=== PATIENT | female | born 1955 | race Caucasian/White ===

== ENCOUNTER → 2021-03-18 08:56 | Outpatient (CLI) | payer MEDICARE, SELFPAY ==
--- NOTE | 2021-03-18 | DI.RAD.S_ITS ---
PROCEDURE: FL BARIUM SWALLOW W AIR COMPARISON: None. INDICATIONS: DYSPHAGIA,OSTEOPOROSIS SCREENING FINDINGS: No mucosal abnormalities. No stricture identified. There is mild esophageal dysmotility. Normal transit of a calibrated barium tablet was observed. IMPRESSION: Mild esophageal dysmotility Dictated by: Aron Webster M.D. on 03/18/2021 at 13:07 Approved by: Aron Webster M.D. on 03/18/2021 at 13:10
== END ==
PROVIDERS: PCP Internal Medicine; Referring Provider Internal Medicine; Visit Provider Internal Medicine
DX: Z13.820 Encounter for screening for osteoporosis (principal); R13.10 Dysphagia, unspecified; K22.4 Dyskinesia of esophagus; M85.851 Other specified disorders of bone density and structure, right thigh; Z78.0 Asymptomatic menopausal state
CPT/HCPCS: 74221; 77080

== ENCOUNTER → 2022-11-25 14:20 | Outpatient (CLI) | payer OTHER, SELFPAY ==
--- NOTE | 2022-11-25 | DI.MRI.S_ITS ---
PROCEDURE: MR ANKLE LT WO CON INDICATIONS: Posterior tibial tendinitis, left leg TECHNIQUE: Noncontrast sagittal T1 spin echo and T2 fast spin echo with fat saturation, axial proton density fast spin echo and T2 fast spin echo with fat saturation, coronal T1 spin echo and T2 fast spin echo with fat saturation through the ankle/hindfoot. COMPARISON: None. FINDINGS: Image quality: Excellent. Bones and joints: Mild midfoot and hindfoot joint osteoarthritis is seen. No bone marrow contusions or fractures. No hindfoot coalitions. No osteochondral injuries of the talar dome. No pathologic joint effusions. Medial structures: The posterior tibialis tendon is markedly thickened with intrasubstance T2 hyperintense signal and small amount of fluid distending tendon sheath at the level of mid to distal talus and talonavicular joint. The flexor digitorum longus, and flexor hallucis longus tendons are intact. The posterior tibial neurovascular bundle appears normal within the tarsal tunnel, without extrinsic mass effect. The deltoid ligament and spring ligament are mildly thickened. Lateral structures: The anterior talofibular, calcaneofibular, and posterior talofibular ligaments appear thickened with intrasubstance T2 hyperintense signal. More superiorly, the anterior and posterior tibiofibular ligaments appear intact, as is the intermalleolar ligament. The tibiofibular syndesmosis is normal in width at 2 mm or less. The peroneus longus and brevis tendons demonstrate normal location and morphology. Adjacent bony peroneal tubercle and retrotrochlear prominence are normal in size. The sinus tarsi demonstrates normal fatty signal, without edema, fibrosis, or cyst formation. Visualized sinus tarsi components (cervical ligament, interosseous talocalcaneal ligament, roots of the inferior extensor retinaculum) appear normal. The calcaneonavicular and calcaneocuboid components of the bifurcate ligament appear intact. The dorsal calcaneocuboid ligament appears intact. Anterior structures: The tibialis anterior, extensor hallucis longus, and extensor digitorum longus tendons appear intact. The dorsal talonavicular ligament appears intact. Posterior and plantar structures: Achilles tendon is mildly thickened near its posterior calcaneal insertion. Medial and lateral bands of the plantar fascia are of normal thickness. No abductor digiti quinti muscle atrophy to suggest Buckner neuropathy. IMPRESSION: 1. Mild midfoot and hindfoot joint osteoarthritis. No marrow edema. No osteochondral injuries of talar dome. No fracture or dislocation. 2. Moderate grade tenosynovitis and low-grade intrasubstance partial-thickness tear involving posterior tibialis tendon at the level of mid to distal talus and talonavicular joint. 3. Distal Achilles tendinosis near its posterior calcaneal insertion. No Achilles tendon rupture. 4. Low-grade medial ankle ligament sprain. Low-grade sprain/intrasubstance partial-thickness tear involving anterior talofibular ligaments, posterior talofibular ligament and calcaneofibular ligament. Dictated by: Nile Cruz M.D. on 11/27/2022 at 12:06 Approved by: Nile Cruz M.D. on 11/27/2022 at 12:09
== END ==
PROVIDERS: PCP Internal Medicine; Referring Provider Orthopaedic Surgery Foot and Ankle Surgery; Visit Provider Orthopaedic Surgery Foot and Ankle Surgery
DX: M76.822 Posterior tibial tendinitis, left leg (principal); M19.072 Primary osteoarthritis, left ankle and foot; M65.862 Other synovitis and tenosynovitis, left lower leg; S93.492A Sprain of other ligament of left ankle, initial encounter; S93.412A Sprain of calcaneofibular ligament of left ankle, initial encounter
CPT/HCPCS: 73721

== ENCOUNTER → 2024-06-03 13:29 | Outpatient (CLI) | payer MEDICARE, SELFPAY ==
--- NOTE | 2024-06-03 13:32 | DI.US.S_ITS ---
PROCEDURE: US ABDOMEN LIMITED INDICATIONS: RIGHT LOWER QUADRANT PAIN ?APPENDICITIS TECHNIQUE: Real-time focused scanning was performed of the abdomen with attention to the appendix, with image documentation. COMPARISON: None. FINDINGS: Appendix visualization: Not visualized. Appendix measurements: Unable to assess Associated findings: Echogenic fat: Absent Appendiceal compressibility: Unable to assess Appendicoliths: Unable to assess Nearby free fluid: Absent Lymphadenopathy: Absent Tenderness on exam: Absent IMPRESSION: Appendix is not visualized. No secondary findings of acute appendicitis. If clinically suspect acute appendicitis, recommend CT abdomen and pelvis with contrast. Dictated by: Ambrose Mcdermott M.D. on 06/03/2024 at 21:06 Approved by: Ambrose Mcdermott M.D. on 06/03/2024 at 21:07
--- NOTE | 2024-06-03 13:32 | DI.US.S_ITS ---
PROCEDURE: US PELVIC COMPLETE INDICATIONS: RIGHT LOWER QUADRANT PAIN TECHNIQUE: Real-time scanning was performed of the pelvic organs, with image documentation. Additional endovaginal scanning was necessary due to incomplete visualization of the adnexal and endometrial structures by transabdominal scanning. COMPARISON: None. FINDINGS: Uterus: Uterus is anteverted and normal in size at 7.0 x 5.3 x 3.4 cm. The myometrium is heterogenous. The endometrium measures 8.7 mm combined thickness. Several small myometrial cysts measure up to 3 mm Several enlarged periuterine veins. Largest with 4.6 mm diameter. Ovaries: The right ovary measures 2.8 x 1.4 x 0.9 cm, with a calculated ovarian volume of 1.9 cc.>> cc. The ovaries have a normal sonographic appearance. Less than 12 follicles can be seen in each ovary. No adnexal masses are seen. Nonvisualized left ovary Other: No pathologic free abdominal or pelvic fluid. IMPRESSION: Thickened endometrium in postmenopausal female. Consider endometrial biopsy. Approved by: Gus Wren M.D. on 06/03/2024 at 18:47
== END ==
PROVIDERS: PCP Physician Assistant; Referring Provider Physician Assistant; Visit Provider Physician Assistant
DX: R10.31 Right lower quadrant pain (principal); R93.89 Abnormal findings on diagnostic imaging of other specified body structures; Z78.0 Asymptomatic menopausal state
CPT/HCPCS: 76705; 76830; 76856

== ENCOUNTER → 2024-06-09 08:18 | Outpatient (CLI) | payer MEDICARE, SELFPAY ==
--- NOTE | 2024-06-09 08:19 | DI.CT.S_ITS ---
PROCEDURE: CT ABDOMEN PELVIS W CON INDICATIONS: RLQ ABD PAIN TECHNIQUE: After the administration of intravenous contrast, axial sections acquired from the lung bases to the pubic symphysis. Coronal and sagittal reformats were performed. For radiation dose reduction, the following was used: automated exposure control, adjustment of mA and/or kV according to patient size. COMPARISON: None. FINDINGS: Image quality: Diagnostic. Lower Chest: Mild hiatal hernia. ABDOMEN: Liver: No solid mass. Mild diffuse hepatic steatosis. Gallbladder: No radiopaque gallstones or wall thickening. Biliary ducts: No biliary dilation. Pancreas: No ductal dilation. Spleen: Size is within normal limits. Adrenal Glands: No adrenal nodules. Kidneys and Ureters: No hydronephrosis. No solid mass. No complex renal cystic lesion which requires follow up. Stomach and Bowel: Normal colonic caliber, without significant wall thickening. Peritoneum: No abnormal intraperitoneal fluid. No free air. Ventral Wall: No significant ventral hernia. Abdominal Nodes: No retroperitoneal or mesenteric adenopathy by size criteria. Vessels: Aorta and inferior vena cava are normal in size. 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 PELVIS: Pelvic Organs: There is right lateral pelvic floor relaxation with protrusion of the lateral base of the bladder through the area of pelvic floor weakening. This is seen on coronal image 62 of series 3 and axial image 126 of series 2. Uterus is in normal location. There are dilated vessels within the uterine wall. Bladder: No bladder wall thickening. The right lateral base of the bladder herniates through a lateral aspect of pelvic floor weakness. There is no cystocele. Pelvic Nodes: No enlarged lymph nodes. Miscellaneous: No inguinal hernias are seen. Bones: No aggressive osseous abnormality. IMPRESSION: 1. There is right lateral aspect pelvic floor relaxation with herniation of the right base of bladder below the expected location of the pelvic floor. This can conceivably result in intermittent right lower quadrant pain. 2. 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 This physiology can be associated with a clinical syndrome of chronic pelvic venous congestion. However, it is rare that this issue would be symptomatic in the patient's age group. Comment: Consider referral to a pelvic floor relaxation specialist. Dictated by: Ambrose Mcdermott M.D. on 06/09/2024 at 13:20 Approved by: Ambrose Mcdermott M.D. on 06/09/2024 at 13:39
[2024-06-09 08:40] LABS: Estimated Glomerular Filt Rate > 60 mL/min (>60)
== END ==
PROVIDERS: Radiology Diagnostic Radiology; PCP Physician Assistant; Referring Provider Physician Assistant; Visit Provider Physician Assistant
DX: N81.89 Other female genital prolapse (principal); N81.10 Cystocele, unspecified; K76.0 Fatty (change of) liver, not elsewhere classified; I86.2 Pelvic varices; R10.31 Right lower quadrant pain
CPT/HCPCS: 36415; 74177; 82565; Q9967

== ENCOUNTER 2024-08-05 10:45 | Outpatient (RCR) | payer MEDICARE, SELFPAY ==
--- NOTE | 2024-07-03 17:07 | PT.OIE ---
Current Diagnoses Other female genital prolapse (07/02/24) Right lower quadrant pain (07/02/24) Visit Care Team Role Provider Type Ludy Botello PA-C Attending Provider Advanced Credit Adjuster Family Provider Primary Care Provider Referring Provider Specialty: Medical Address: [address] [place] [address], [id number] Email: Physical Therapy Initial Evaluation PT-OP-A Visit Information Start: 07/01/24 17:02 Freq: Status: Active Protocol: Document 07/02/24 09:45 [facility] (Rec: 07/02/24 10:03 [facility] [id number]) Out-Patient Physical Therapy Visit Information Visit Information Visit Type Initial Evaluation Visit Start Time 09:45 Visit Stop Time 10:30 Visit Number 1 Evaluation Information Evaluation Date 07/02/24 PT-OP-B Current Condition Start: 07/01/24 17:02 Freq: Status: Active Protocol: Document 07/02/24 09:45 [facility] (Rec: 07/02/24 10:03 [facility] [id number]) Current Condition History of Current Condition Onset Date March 2024 Current Complaints right sided lower abdominal and pelvic pain, urinary urgency History of Current Condition pt notes she has always had frequent urination. She feels like now it is running her life, Thanksgiving time she noted she was going all the time. Then the pain started. Its in the right lower abdomen and then wraps around her back. Then she started to experience intermittent sharp pain with bending or squatting. She was put on antibiotic and when the culture cam back she was taken off the first one and put on the second antibiotic. By May she was voiding every 15 minutes. 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 She started rowing this past January Fluid intake pt drinks mostly water, i cup of coffee in am and that is really it. She gave any alcohol as she felt something was wrong. past medical history of twins with c section delivery with one baby transverse then one additional baby that was ce section. PT-OP-F Manual Assessment Start: 07/01/24 17:02 Freq: Status: Active Protocol: Document 07/02/24 09:45 [facility] (Rec: 07/03/24 16:57 [facility] [id number]) Manual Assessments Soft Tissue Assessment Soft Tissue Mobility Assessment scar tissue tightness over the scar on the suprapubic fascia tenderness to palpation over the right lower abdominal wall PT-OP-I Pelvic Floor Start: 07/01/24 17:02 Freq: Status: Active Protocol: Document 07/02/24 13:23 [facility] (Rec: 07/02/24 13:26 [facility] [id number]) Pelvic Floor Assessment Urine Pelvic Floor Surgery No Other Urinary Symptoms pelvic pain symptoms Leakage Size Small Leakage Cause Cough Other Leakage Causes leakage only with strong cough or sneeze but not pts chief complaint of symptoms Pelvic Clock Pelvic Clock 12-3 Atrophy Pelvic Clock 3-6 Tightness Pelvic Clock 6-9 Atrophy,Tightness Pelvic Clock 9-12 Atrophy Pelvic Clock Other tenderness to palpation on the right lateral wall of the levator ani Prolapse Uterine Prolapse Grade 2 Cystocele Grade 2 Contraction Ability Voluntary Contraction Weak Voluntary Relaxation Weak Manual Muscle Testing Left 2 Manual Muscle Testing Right 2 Manual Muscle Testing Anterior 1 Manual Muscle Testing Posterior 2 Muscle Endurance (Seconds) 5 PT-OP-J Posture/Palpation/Skin Start: 07/01/24 17:02 Freq: Status: Active Protocol: Document 07/02/24 09:45 [facility] (Rec: 07/03/24 16:57 [facility] [id number]) Palpation Assessment Location right lower abdominal wall Palpation Findings Soft Tissue Tightness,Muscle Guarding Palpation Details tenderness to palpation along with tightness of lower abdominal fascia both over the bladder and right lower abdominal wall PT-OP-M Strength Start: 07/01/24 17:02 Freq: Status: Active Protocol: Document 07/02/24 09:45 [facility] (Rec: 07/03/24 16:57 [facility] [id number]) Trunk Strength Trunk Manual Muscle Testing Testing Position Supine Flexion 3 Fair Core Stabilization With transverse abdominal contraction there is tenderness that is reproduced on the lower right abdominal wall. Codie needs cues to pull the TA musculature towards her verses pushing out away from the abdominal wall. PT-OP-Q Treatments Start: 07/01/24 17:02 Freq: Status: Active Protocol: Document 07/02/24 09:45 [facility] (Rec: 07/02/24 10:49 [facility] [id number]) Therapeutic Exercises Supine Exercises pelvic floor with adductor assist Supine Exercise Name pt to do supine only Reps/Minutes 10 reps 5 sec hold with 10 sec relax Comments pt to work up to 10 sec hold after a few days if able PT-OP-T Assessment and Plan Start: 07/01/24 17:02 Freq: Status: Active Protocol: Document 07/02/24 09:45 [facility] (Rec: 07/02/24 13:27 [facility] [id number]) Physical Therapy Assessment Rehab Potential Rehabilitation Potential Excellent Evaluation Complexity Number of Personal Factors/Comorbidities 1-2 Number of Body Systems Impaired 3 Clinical Presentation at Evaluation Evolving Impairments Impairments Activity Tolerance,Pain,Soft Tissue Mobility,Strength,Tone Other Impairments c/o right sided lower abdominal pain Goals 3 Impairment urinary urgency and frequency with pt voiding 15-19 times per day and 2 times per night Short Term Goal (STG) Kimberly is educated on the urge deference technique and bladder retraining to help reduce complaints of urinary frequency and urgency and is educated on toileting techniques to help with fully emptying her bladder. General Science Teacher Goal (LTG) Kimberly is able to increase her void time to at least every hour and will be working towards every 2 hour intervals LTG Duration 8 weeks+ 2 Impairment right lower abdominal wall pain made worse with bending activities General Science Teacher Goal (LTG) Kimberly reports a overall reduction of abdominal wall pain with improved pelvic floor support for her pelvic organs LTG Duration 8 weeks 1 Impairment Decreased strength and endurance of the pelvic floor Short Term Goal (STG) Kimberly is able to increase endurance of the pelvic floor to 10 sec hold time in supine STG Duration 4 weeks General Science Teacher Goal (LTG) Kimberly is able to improve her MMT by at least 1 muscle grade and is able to facilitate a pelvic floor contraction in sitting holding 5 sec or better LTG Duration 8 weeks Assessment Summary Assessment Kimberly is a 68 year old female referred to PT with chief complaints of urinary urgency an frequency that began in March 2024. As her symptoms progressed she started experiencing a right sided lower abdominal pain. This pain is worse with bending and squatting activities. She was tested and treated for a UTI however pain symptoms did not resolve. She does note that she has started a rowing program on the water with the [employer] in January 2024. She has since stopped this activity. With exam today there is scar tissue present from her C section scar horizontally over the suprapubic fascia. There is tenderness to palpation over the lower right abdominal wall. When directed to perform a transverse abdominal muscle contraction this increases irritation on the right lower quadrant. With pelvic floor assessment Kimberly presents with weakness of the levator ani in all perez. She tests 1/5 MMT for the anterior perez and 2/5 MMT for the posterior and lateral perez. There is tenderness over the right lateral wall of the levator ani. Both a grade 2 uterine prolapse as well as a cystocele are present. Kimberly was educated in decompression for the pelvis to take pressure off the pelvic organs. SHe was educated in pessary options and may be a candidate for a bladder support as she would like to return to rowing when she can. Treatment will focus on pelvic floor strength and endurance program to build up her strength to support her pelvic organs. We will then progress to lower abdominal strengthening as well and move to upright positions for core stability. This will include pelvic floor bracing with rowing to decrease any downward pressure with her activity she is enjoying. Kimberly will be leaving for [place] in August for 6 months so we will treat her 2 times per week until that time. She is a good candidate for PT. Physical Therapy Plan Frequency and Duration Frequency of Treatment 2x/Week Duration of treatment (weeks) 8 Plan of Care Start Date 07/02/24 Plan of Care End Date 08/27/24 Therapeutic Interventions Therapeutic Interventions Home Exercise Program,Manual Therapy,Patient/Caregiver Education,Self-Care/Home Management,Soft Tissue Mobilization,Therapeutic Exercises Modalities Biofeedback Next Visit Focus/Plan Next Note Type Treatment Note Next Visit Plan work on pelvic decompression with a wedge, MFR for the suprapubic fascia, educated Kimberly on the urge deference technique, pelvic floor strength and endurance exercises.
--- NOTE | 2024-07-09 11:59 | PT.OTN ---
Current Diagnoses Other female genital prolapse (07/09/24) Right lower quadrant pain (07/09/24) Physical Therapy Treatment Note PT-OP-A Visit Information Start: 07/01/24 17:02 Freq: Status: Active Protocol: Document 07/09/24 10:45 [facility] (Rec: 07/09/24 11:59 [facility] [id number]) Out-Patient Physical Therapy Visit Information Visit Information Visit Type Treatment Note Visit Start Time 10:45 Visit Stop Time 11:30 Visit Number 2 PT-OP-B Current Condition Start: 07/01/24 17:02 Freq: Status: Active Protocol: Document 07/02/24 09:45 [facility] (Rec: 07/02/24 10:03 [facility] [id number]) Current Condition History of Current Condition Onset Date March 2024 Current Complaints right sided lower abdominal and pelvic pain, urinary urgency History of Current Condition pt notes she has always had frequent urination. She feels like now it is running her life, Thanksgiving time she noted she was going all the time. Then the pain started. Its in the right lower abdomen and then wraps around her back. Then she started to experience intermittent sharp pain with bending or squatting. She was put on antibiotic and when the culture cam back she was taken off the first one and put on the second antibiotic. By May she was voiding every 15 minutes. 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 She started rowing this past sepemte Fluid intake pt drinks mostly water, i cup of coffee in am and that is really it. She gave any alcohol as she felt something was wrong. past medical history of twins with c section delivery with one baby trasverse then one additional baby that was ce section. PT-OP-C Subjective Start: 07/01/24 17:02 Freq: Status: Active Protocol: Document 07/09/24 10:45 [facility] (Rec: 07/09/24 11:59 [facility] [id number]) OP-PT Subjective Patient Comments Patient Comments pt notes the relaxing of the pelvic floor is harder than the squeezing pt notes the bloating is a little better She saw Dr Cantu and he took a biopsy of endometrium tissue as the pelvic ultrasound did show some thickening of the endometrium She is awaiting those results. PT-OP-F Manual Assessment Start: 07/01/24 17:02 Freq: Status: Active Protocol: Document 07/02/24 09:45 [facility] (Rec: 07/03/24 16:57 [facility] [id number]) Manual Assessments Soft Tissue Assessment Soft Tissue Mobility Assessment scar tissue tightness over the scar on the suprapubic fascia tenderness to palpation over the right lower abdominal wall PT-OP-I Pelvic Floor Start: 07/01/24 17:02 Freq: Status: Active Protocol: Document 07/02/24 13:23 [facility] (Rec: 07/02/24 13:26 [facility] [id number]) Pelvic Floor Assessment Urine Pelvic Floor Surgery No Other Urinary Symptoms pelvic pain symptoms Leakage Size Small Leakage Cause Cough Other Leakage Causes leakage only with strong cough or sneeze but not pts chief complaint of symptoms Pelvic Clock Pelvic Clock 12-3 Atrophy Pelvic Clock 3-6 Tightness Pelvic Clock 6-9 Atrophy,Tightness Pelvic Clock 9-12 Atrophy Pelvic Clock Other tenderness to palpation on the right lateral wall of the levator ani Prolapse Uterine Prolapse Grade 2 Cystocele Grade 2 Contraction Ability Voluntary Contraction Weak Voluntary Relaxation Weak Manual Muscle Testing Left 2 Manual Muscle Testing Right 2 Manual Muscle Testing Anterior 1 Manual Muscle Testing Posterior 2 Muscle Endurance (Seconds) 5 PT-OP-J Posture/Palpation/Skin Start: 07/01/24 17:02 Freq: Status: Active Protocol: Document 07/02/24 09:45 [facility] (Rec: 07/03/24 16:57 [facility] [id number]) Palpation Assessment Location right lower abdominal wall Palpation Findings Soft Tissue Tightness,Muscle Guarding Palpation Details tenderness to palpation along with tightness of lower abdominal fascia both over the bladder and right lower abdominal wall PT-OP-M Strength Start: 07/01/24 17:02 Freq: Status: Active Protocol: Document 07/02/24 09:45 [facility] (Rec: 07/03/24 16:57 [facility] [id number]) Trunk Strength Trunk Manual Muscle Testing Testing Position Supine Flexion 3 Fair Core Stabilization With transverse abdominal contraction there is tenderness that is reproduced on the lower right abdominal wall. Codie needs cues to pull the TA musculature towards her verses pushing out away from the abdominal wall. PT-OP-Q Treatments Start: 07/01/24 17:02 Freq: Status: Active Protocol: Document 07/09/24 10:45 [facility] (Rec: 07/09/24 11:59 [facility] [id number]) Therapeutic Exercises Supine Exercises pelvic floor long holds Reps/Minutes 10 reps holding 10 seconds Comments 6.8 and max 19.1 uv pelvic floor resting tone Supine Exercise Name 2.5 uv average initially Comments pt was able to fully relax her pelvic floor to baseline following exercises pelvic floor with adductor assist Supine Exercise Name with ball squeeze Reps/Minutes 10 reps holding 10 seconds and relaxing 10 seconds Comments 7.7 average and 19.1 uv max Manual Therapy Treatment Soft Tissue Mobilization MFR of the suprapubic fascia and over right side of abdominal wall Mobilization Type Myofascial Release Body Position Hooklying Comments did try placing pillows under the pelvis for some pelvic decompression, tried a wedge but this did not feel comfortable to the pt, legs were elevated over a bolster I worked on releasing botht he lower abdominal and suprapubic fascia. There is some scar tissue present over the scar Self-Care/Home Management Treatment Education Other Education Kimberly was educated on the urge deference technique and working on fully relaxing her pelvic floor with voiding She was given a bladder diary for home PT-OP-T Assessment and Plan Start: 07/01/24 17:02 Freq: Status: Active Protocol: Document 07/09/24 10:45 [facility] (Rec: 07/09/24 11:59 [facility] [id number]) Physical Therapy Assessment Goals 3 Impairment urinary urgency and frequency with pt voiding 15-19 times per day and 2 times per night Short Term Goal (STG) Kimberly is educated on the urge deference technique and bladder retraining to help reduce complaints of urinary frequency and urgency and is educated on toileting techniques to help with fully emptying her bladder. Byproducts Extractor Goal (LTG) Kimberly is able to increase her void time to at least every hour and will be working towards every 2 hour intervals LTG Duration 8 weeks+ 2 Impairment right lower abdominal wall pain made worse with bending activities Usp Goal (LTG) Kimberly reports a overall reduction of abdominal wall pain with improved pelvic floor support for her pelvic organs LTG Duration 8 weeks 1 Impairment Decreased strength and endurance of the pelvic floor Short Term Goal (STG) Kimberly is able to increase endurance of the pelvic floor to 10 sec hold time in supine STG Duration 4 weeks Byproducts Extractor Goal (LTG) Kimberly is able to improve her MMT by at least 1 muscle grade and is able to facilitate a pelvic floor contraction in sitting holding 5 sec or better LTG Duration 8 weeks Assessment Summary Assessment Today treatment focused on fascial release of the lower abdominal fascia and suprapubic fascia. I did try elevating Jessica pelvis with a wedge but this did not feel comfortable on her back so we used a folded pillow under her sacrum and she tolerated this well. With pelvic floor endurance training she was elevated at 2.5 initially and it takes her the full 10 seconds to relax her pelvic floor after a contraction but at the end of her exercises she was resting at baseline. Endurance of the pelvic floor is limited and Kimberly would benefit from continued pelvic floor endurance training as well as relaxed awareness to fully relax her pelvic floor especially with voiding Physical Therapy Plan Next Visit Focus/Plan Next Note Type Treatment Note Next Visit Plan MFR for the suprapubic fascia, review bladder diary, review urge deference technique, continue progressing pelvic floor endurance and core strength, trial of TA isolations in quadruped
--- NOTE | 2024-07-16 12:55 | PT.OTN ---
Current Diagnoses Other female genital prolapse (07/16/24) Right lower quadrant pain (07/16/24) Physical Therapy Treatment Note PT-OP-A Visit Information Start: 07/01/24 17:02 Freq: Status: Active Protocol: Document 07/16/24 10:44 [facility] (Rec: 07/16/24 11:35 [facility] [id number]) Out-Patient Physical Therapy Visit Information Visit Information Visit Type Treatment Note Visit Start Time 10:45 Visit Stop Time 11:30 Visit Number 3 PT-OP-B Current Condition Start: 07/01/24 17:02 Freq: Status: Active Protocol: Document 07/02/24 09:45 [facility] (Rec: 07/02/24 10:03 [facility] [id number]) Current Condition History of Current Condition Onset Date March 2024 Current Complaints right sided lower abdominal and pelvic pain, urinary urgency History of Current Condition pt notes she has always had frequent urination. She feels like now it is running her life, Thanksgiving time she noted she was going all the time. Then the pain started. Its in the right lower abdomen and then wraps around her back. Then she started to experience intermittent sharp pain with bending or squatting. She was put on antibiotic and when the culture cam back she was taken off the first one and put on the second antibiotic. By May she was voiding every 15 minutes. 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 She started rowing this past sepemte Fluid intake pt drinks mostly water, i cup of coffee in am and that is really it. She gave any alcohol as she felt something was wrong. past medical history of twins with c section delivery with one baby trasverse then one additional baby that was ce section. PT-OP-C Subjective Start: 07/01/24 17:02 Freq: Status: Active Protocol: Document 07/16/24 10:44 [facility] (Rec: 07/16/24 11:35 [facility] [id number]) OP-PT Subjective Patient Comments Patient Comments pt notes she is going less than she was before, one night she didn't get up to void at all she is drinking a lot of water in the am with her coffee Abdominal pain is 50 percent better than it was before, all the results of the biopsy were benign. Patient Reported Progress Improving PT-OP-F Manual Assessment Start: 07/01/24 17:02 Freq: Status: Active Protocol: Document 07/02/24 09:45 [facility] (Rec: 07/03/24 16:57 [facility] [id number]) Manual Assessments Soft Tissue Assessment Soft Tissue Mobility Assessment scar tissue tightness over the scar on the suprapubic fascia tenderness to palpation over the right lower abdominal wall PT-OP-I Pelvic Floor Start: 07/01/24 17:02 Freq: Status: Active Protocol: Document 07/02/24 13:23 [facility] (Rec: 07/02/24 13:26 [facility] [id number]) Pelvic Floor Assessment Urine Pelvic Floor Surgery No Other Urinary Symptoms pelvic pain symptoms Leakage Size Small Leakage Cause Cough Other Leakage Causes leakage only with strong cough or sneeze but not pts chief complaint of symptoms Pelvic Clock Pelvic Clock 12-3 Atrophy Pelvic Clock 3-6 Tightness Pelvic Clock 6-9 Atrophy,Tightness Pelvic Clock 9-12 Atrophy Pelvic Clock Other tenderness to palpation on the right lateral wall of the levator ani Prolapse Uterine Prolapse Grade 2 Cystocele Grade 2 Contraction Ability Voluntary Contraction Weak Voluntary Relaxation Weak Manual Muscle Testing Left 2 Manual Muscle Testing Right 2 Manual Muscle Testing Anterior 1 Manual Muscle Testing Posterior 2 Muscle Endurance (Seconds) 5 PT-OP-J Posture/Palpation/Skin Start: 07/01/24 17:02 Freq: Status: Active Protocol: Document 07/02/24 09:45 [facility] (Rec: 07/03/24 16:57 [facility] [id number]) Palpation Assessment Location right lower abdominal wall Palpation Findings Soft Tissue Tightness,Muscle Guarding Palpation Details tenderness to palpation along with tightness of lower abdominal fascia both over the bladder and right lower abdominal wall PT-OP-M Strength Start: 07/01/24 17:02 Freq: Status: Active Protocol: Document 07/02/24 09:45 [facility] (Rec: 07/03/24 16:57 [facility] [id number]) Trunk Strength Trunk Manual Muscle Testing Testing Position Supine Flexion 3 Fair Core Stabilization With transverse abdominal contraction there is tenderness that is reproduced on the lower right abdominal wall. oCdie needs cues to pull the TA musculature towards her verses pushing out away from the abdominal wall. PT-OP-Q Treatments Start: 07/01/24 17:02 Freq: Status: Active Protocol: Document 07/16/24 10:44 [facility] (Rec: 07/16/24 11:35 [facility] [id number]) Therapeutic Exercises Supine Exercises pelvic floor long holds Reps/Minutes 10 reps holding 10 seconds Comments 6.5 and 17.1 pelvic floor resting tone Supine Exercise Name 1.7 average resting tone Comments pt was able to fully relax her pelvic floor to baseline following exercises pelvic floor with adductor assist Supine Exercise Name with ball squeeze Reps/Minutes 10 reps holding 10 seconds and relaxing 10 seconds Comments 7.7 average and 19.1 uv max Other Exercises quadruped TA Reps/Minutes x 10 reps holding 5 seconds Comments We tried quadruped and then moved to sidelying as quadruped bothered wrists Manual Therapy Treatment Soft Tissue Mobilization MFR of the suprapubic fascia and over right side of abdominal wall Mobilization Type Myofascial Release Body Position Hooklying Comments I worked on releasing both the lower abdominal and suprapubic fascia. There is some scar tissue present over the scar PT-OP-T Assessment and Plan Start: 07/01/24 17:02 Freq: Status: Active Protocol: Document 07/16/24 10:44 [facility] (Rec: 07/16/24 11:35 [facility] [id number]) Physical Therapy Assessment Goals 3 Impairment urinary urgency and frequency with pt voiding 15-19 times per day and 2 times per night Short Term Goal (STG) Kimberly is educated on the urge deference technique and bladder retraining to help reduce complaints of urinary frequency and urgency and is educated on toileting techniques to help with fully emptying her bladder. Intermediate Goal (LTG) Kimberly is able to increase her void time to at least every hour and will be working towards every 2 hour intervals LTG Duration 8 weeks+ 2 Impairment right lower abdominal wall pain made worse with bending activities Dry Cleaner Goal (LTG) Kimberly reports a overall reduction of abdominal wall pain with improved pelvic floor support for her pelvic organs LTG Duration 8 weeks 1 Impairment Decreased strength and endurance of the pelvic floor Short Term Goal (STG) Kimberly is able to increase endurance of the pelvic floor to 10 sec hold time in supine STG Duration 4 weeks Dry Cleaner Goal (LTG) Kimberly is able to improve her MMT by at least 1 muscle grade and is able to facilitate a pelvic floor contraction in sitting holding 5 sec or better LTG Duration 8 weeks Assessment Summary Assessment Kimberly is doing well with treatment and reports that her abdominal pain is reduced by 50% now. I did start her on TA facilitation and this is difficult for her as she wants to engage her upper abdominal wall. Sidelying worked better than quadruped. She still needs continued strengthening for her pelvic floor as endurance holds are difficult for her. Physical Therapy Plan Frequency and Duration Frequency of Treatment 2x/Week Duration of treatment (weeks) 8 Plan of Care Start Date 07/02/24 Plan of Care End Date 08/27/24 Therapeutic Interventions Therapeutic Interventions Home Exercise Program,Manual Therapy,Patient/Caregiver Education,Self-Care/Home Management,Soft Tissue Mobilization,Therapeutic Exercises Modalities Biofeedback Next Visit Focus/Plan Next Note Type Treatment Note Next Visit Plan MFR for the suprapubic fascia, review bladder diary, review urge deference technique, continue progressing pelvic floor endurance and core strength, work on sit-stand with pelvic floor and TA engagement
--- NOTE | 2024-07-23 12:35 | PT.OTN ---
Current Diagnoses Other female genital prolapse (07/23/24) Right lower quadrant pain (07/23/24) Physical Therapy Treatment Note PT-OP-A Visit Information Start: 07/01/24 17:02 Freq: Status: Active Protocol: Document 07/23/24 11:27 [facility] (Rec: 07/23/24 11:36 [facility] [id number]) Out-Patient Physical Therapy Visit Information Visit Information Visit Start Time 11:30 Visit Stop Time 12:15 Visit Number 4 PT-OP-B Current Condition Start: 07/01/24 17:02 Freq: Status: Active Protocol: Document 07/02/24 09:45 [facility] (Rec: 07/02/24 10:03 [facility] [id number]) Current Condition History of Current Condition Onset Date March 2024 Current Complaints right sided lower abdominal and pelvic pain, urinary urgency History of Current Condition pt notes she has always had frequent urination. She feels like now it is running her life, Thanksgiving time she noted she was going all the time. Then the pain started. Its in the right lower abdomen and then wraps around her back. Then she started to experience intermittent sharp pain with bending or squatting. She was put on antibiotic and when the culture cam back she was taken off the first one and put on the second antibiotic. By May she was voiding every 15 minutes. 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 She started rowing this past sepemte Fluid intake pt drinks mostly water, i cup of coffee in am and that is really it. She gave any alcohol as she felt something was wrong. past medical history of twins with c section delivery with one baby trasverse then one additional baby that was ce section. PT-OP-C Subjective Start: 07/01/24 17:02 Freq: Status: Active Protocol: Document 07/23/24 11:27 [facility] (Rec: 07/23/24 11:36 [facility] [id number]) OP-PT Subjective Patient Comments Patient Comments she only felt her pain 1-2 times this week, its still a little tender but not bad The urinination is better, a couple a nights she slept through the night SHe has been out in the yard working too and it hasn't bothered her PT-OP-F Manual Assessment Start: 07/01/24 17:02 Freq: Status: Active Protocol: Document 07/02/24 09:45 [facility] (Rec: 07/03/24 16:57 [facility] [id number]) Manual Assessments Soft Tissue Assessment Soft Tissue Mobility Assessment scar tissue tightness over the scar on the suprapubic fascia tenderness to palpation over the right lower abdominal wall PT-OP-I Pelvic Floor Start: 07/01/24 17:02 Freq: Status: Active Protocol: Document 07/02/24 13:23 [facility] (Rec: 07/02/24 13:26 [facility] [id number]) Pelvic Floor Assessment Urine Pelvic Floor Surgery No Other Urinary Symptoms pelvic pain symptoms Leakage Size Small Leakage Cause Cough Other Leakage Causes leakage only with strong cough or sneeze but not pts chief complaint of symptoms Pelvic Clock Pelvic Clock 12-3 Atrophy Pelvic Clock 3-6 Tightness Pelvic Clock 6-9 Atrophy,Tightness Pelvic Clock 9-12 Atrophy Pelvic Clock Other tenderness to palpation on the right lateral wall of the levator ani Prolapse Uterine Prolapse Grade 2 Cystocele Grade 2 Contraction Ability Voluntary Contraction Weak Voluntary Relaxation Weak Manual Muscle Testing Left 2 Manual Muscle Testing Right 2 Manual Muscle Testing Anterior 1 Manual Muscle Testing Posterior 2 Muscle Endurance (Seconds) 5 PT-OP-J Posture/Palpation/Skin Start: 07/01/24 17:02 Freq: Status: Active Protocol: Document 07/02/24 09:45 [facility] (Rec: 07/03/24 16:57 [facility] [id number]) Palpation Assessment Location right lower abdominal wall Palpation Findings Soft Tissue Tightness,Muscle Guarding Palpation Details tenderness to palpation along with tightness of lower abdominal fascia both over the bladder and right lower abdominal wall PT-OP-M Strength Start: 07/01/24 17:02 Freq: Status: Active Protocol: Document 07/02/24 09:45 [facility] (Rec: 07/03/24 16:57 [facility] [id number]) Trunk Strength Trunk Manual Muscle Testing Testing Position Supine Flexion 3 Fair Core Stabilization With transverse abdominal contraction there is tenderness that is reproduced on the lower right abdominal wall. Codie needs cues to pull the TA musculature towards her verses pushing out away from the abdominal wall. PT-OP-Q Treatments Start: 07/01/24 17:02 Freq: Status: Active Protocol: Document 07/23/24 11:27 [facility] (Rec: 07/23/24 12:33 [facility] [id number]) Therapeutic Exercises Supine Exercises pelvic floor long holds Reps/Minutes 10 reps holding 10 seconds Comments 4.9 andmax of 19.6 pelvic floor resting tone Supine Exercise Name 1.4 average pelvic floor with adductor assist Supine Exercise Name HEP Sidelying Exercises clam shells Sidelying Exercise Name pt was able to drop to baseline after doing clam shells B Side bilateral Reps/Minutes x 10 reps Comments 5 sec hold 5 sec relax Other Exercises quadruped TA Other Exercise Name worked in sidelying as pt tolerate this better Reps/Minutes x 10 reps holding 5 seconds Comments improved today with cues to exhale with contraction Manual Therapy Treatment Soft Tissue Mobilization MFR of the suprapubic fascia and over right side of abdominal wall Mobilization Type Myofascial Release Body Position Hooklying Comments hx of right sided lower abdominal wall pain but this is improving and pt is no longer as tender I worked on releasing both the lower abdominal and suprapubic fascia. There is some scar tissue present over the scar PT-OP-T Assessment and Plan Start: 07/01/24 17:02 Freq: Status: Active Protocol: Document 07/23/24 11:27 [facility] (Rec: 07/23/24 12:33 [facility] [id number]) Physical Therapy Assessment Goals 3 Impairment urinary urgency and frequency with pt voiding 15-19 times per day and 2 times per night Short Term Goal (STG) Kimberly is educated on the urge deference technique and bladder retraining to help reduce complaints of urinary frequency and urgency and is educated on toileting techniques to help with fully emptying her bladder. Calibration Specialist Goal (LTG) Kimberly is able to increase her void time to at least every hour and will be working towards every 2 hour intervals LTG Duration 8 weeks+ 2 Impairment right lower abdominal wall pain made worse with bending activities Correction Goal (LTG) Kimberly reports a overall reduction of abdominal wall pain with improved pelvic floor support for her pelvic organs LTG Duration 8 weeks 1 Impairment Decreased strength and endurance of the pelvic floor Short Term Goal (STG) Kimberly is able to increase endurance of the pelvic floor to 10 sec hold time in supine STG Duration 4 weeks Correction Goal (LTG) Kimberly is able to improve her MMT by at least 1 muscle grade and is able to facilitate a pelvic floor contraction in sitting holding 5 sec or better LTG Duration 8 weeks Assessment Summary Assessment right sided lower abdominal wall pain continues to decrease and urgency is also decreasing. Kimberly had a night where she was able to sleep the full night. I did talk to her about drinking water first vs the coffee as her urgency is still present in the am after she drinks her coffee. She will try one glass of water first thing. Endurance is still limited for Kimberly with her pelvic floor . She does better with adductor assist and today I added in clam shells with 5 sec hold and 5 sec rest this also improved her average contraction of pelvic floor. Pt has 2 weeks prior to leaving for [place] x 6 months Physical Therapy Plan Frequency and Duration Frequency of Treatment 2x/Week Duration of treatment (weeks) 8 Plan of Care Start Date 07/02/24 Plan of Care End Date 08/27/24 Therapeutic Interventions Therapeutic Interventions Home Exercise Program,Manual Therapy,Patient/Caregiver Education,Self-Care/Home Management,Soft Tissue Mobilization,Therapeutic Exercises Modalities Biofeedback Next Visit Focus/Plan Next Note Type Treatment Note Next Visit Plan MFR for the suprapubic fascia, review bladder diary, review urge deference technique, continue progressing pelvic floor endurance and core strength, review clam shells, work on sit-stand with pelvic floor and TA engagement
--- NOTE | 2024-07-25 12:20 | PT.OTN ---
Current Diagnoses Other female genital prolapse (07/25/24) Right lower quadrant pain (07/25/24) Physical Therapy Treatment Note PT-OP-A Visit Information Start: 07/01/24 17:02 Freq: Status: Active Protocol: Document 07/25/24 11:35 [facility] (Rec: 07/25/24 12:23 [facility] [id number]) Out-Patient Physical Therapy Visit Information Visit Information Visit Start Time 11:35 Visit Stop Time 12:20 Visit Number 5 Number of CHURCH MUSICIAN Visits 1 Evaluation Information Evaluation Date 07/02/24 PT-OP-B Current Condition Start: 07/01/24 17:02 Freq: Status: Active Protocol: Document 07/02/24 09:45 [facility] (Rec: 07/02/24 10:03 [facility] [id number]) Current Condition History of Current Condition Onset Date March 2024 Current Complaints right sided lower abdominal and pelvic pain, urinary urgency History of Current Condition pt notes she has always had frequent urination. She feels like now it is running her life, Thanksgiving time she noted she was going all the time. Then the pain started. Its in the right lower abdomen and then wraps around her back. Then she started to experience intermittent sharp pain with bending or squatting. She was put on antibiotic and when the culture cam back she was taken off the first one and put on the second antibiotic. By May she was voiding every 15 minutes. 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 She started rowing this past sepemte Fluid intake pt drinks mostly water, i cup of coffee in am and that is really it. She gave any alcohol as she felt something was wrong. past medical history of twins with c section delivery with one baby trasverse then one additional baby that was ce section. PT-OP-C Subjective Start: 07/01/24 17:02 Freq: Status: Active Protocol: Document 07/25/24 11:35 [facility] (Rec: 07/25/24 12:23 [facility] [id number]) OP-PT Subjective Patient Comments Patient Comments Pt reports PT was right clamshell 3x/wk is enough, did get sore daily and needed recovery day. She reports no leakage. PT-OP-F Manual Assessment Start: 07/01/24 17:02 Freq: Status: Active Protocol: Document 07/02/24 09:45 [facility] (Rec: 07/03/24 16:57 [facility] [id number]) Manual Assessments Soft Tissue Assessment Soft Tissue Mobility Assessment scar tissue tightness over the scar on the suprapubic fascia tenderness to palpation over the right lower abdominal wall PT-OP-I Pelvic Floor Start: 07/01/24 17:02 Freq: Status: Active Protocol: Document 07/02/24 13:23 [facility] (Rec: 07/02/24 13:26 [facility] [id number]) Pelvic Floor Assessment Urine Pelvic Floor Surgery No Other Urinary Symptoms pelvic pain symptoms Leakage Size Small Leakage Cause Cough Other Leakage Causes leakage only with strong cough or sneeze but not pts chief complaint of symptoms Pelvic Clock Pelvic Clock 12-3 Atrophy Pelvic Clock 3-6 Tightness Pelvic Clock 6-9 Atrophy,Tightness Pelvic Clock 9-12 Atrophy Pelvic Clock Other tenderness to palpation on the right lateral wall of the levator ani Prolapse Uterine Prolapse Grade 2 Cystocele Grade 2 Contraction Ability Voluntary Contraction Weak Voluntary Relaxation Weak Manual Muscle Testing Left 2 Manual Muscle Testing Right 2 Manual Muscle Testing Anterior 1 Manual Muscle Testing Posterior 2 Muscle Endurance (Seconds) 5 PT-OP-J Posture/Palpation/Skin Start: 07/01/24 17:02 Freq: Status: Active Protocol: Document 07/02/24 09:45 [facility] (Rec: 07/03/24 16:57 [facility] [id number]) Palpation Assessment Location right lower abdominal wall Palpation Findings Soft Tissue Tightness,Muscle Guarding Palpation Details tenderness to palpation along with tightness of lower abdominal fascia both over the bladder and right lower abdominal wall PT-OP-M Strength Start: 07/01/24 17:02 Freq: Status: Active Protocol: Document 07/02/24 09:45 [facility] (Rec: 07/03/24 16:57 [facility] [id number]) Trunk Strength Trunk Manual Muscle Testing Testing Position Supine Flexion 3 Fair Core Stabilization With transverse abdominal contraction there is tenderness that is reproduced on the lower right abdominal wall. Codie needs cues to pull the TA musculature towards her verses pushing out away from the abdominal wall. PT-OP-Q Treatments Start: 07/01/24 17:02 Freq: Status: Active Protocol: Document 07/25/24 11:35 [facility] (Rec: 07/25/24 12:23 [facility] [id number]) Therapeutic Exercises Supine Exercises Pelvic floor Quick Flicks Supine Exercise Name added to HEP to assist urgency technique Reps/Minutes 2 SH rest 4 SH Comments W 7.4uv avg, max 14.9uv, R 3. 1uv pelvic floor long holds Reps/Minutes 10 reps holding 10 seconds Comments 45.3uv and max of 15.9uv pelvic floor resting tone Supine Exercise Name 1.6uv average pelvic floor with adductor assist Supine Exercise Name HEP Reps/Minutes 10 reps holding 10 seconds and relaxing 10 seconds Comments 5.1uv average and 21.uv max ( readjusted 94.9uv) Sidelying Exercises clam shells Side bilateral Reps/Minutes x 10 reps Comments 5 sec hold 5 sec relax Other Exercises quadruped TA Other Exercise Name worked in sidelying as pt tolerate this better Reps/Minutes x 10 reps holding 5 seconds Comments improved today with cues to exhale with contraction Manual Therapy Treatment Consent Patient gave verbal consent for manual Yes treatment Soft Tissue Mobilization MFR of the suprapubic fascia and over right side of abdominal wall Mobilization Type Myofascial Release Body Position Hooklying Comments improving no pain reported and pt is no longer as tender I worked on releasing both the lower abdominal and suprapubic fascia. There is some scar tissue present over the scar. lateral glide ed self application PT-OP-T Assessment and Plan Start: 07/01/24 17:02 Freq: Status: Active Protocol: Document 07/25/24 11:35 [facility] (Rec: 07/25/24 12:23 [facility] [id number]) Physical Therapy Assessment Goals 3 Impairment urinary urgency and frequency with pt voiding 15-19 times per day and 2 times per night Short Term Goal (STG) Kimberly is educated on the urge deference technique and bladder retraining to help reduce complaints of urinary frequency and urgency and is educated on toileting techniques to help with fully emptying her bladder. Detention Goal (LTG) Kimberly is able to increase her void time to at least every hour and will be working towards every 2 hour intervals LTG Duration 8 weeks+ 2 Impairment right lower abdominal wall pain made worse with bending activities Senior Technical Trainer Goal (LTG) Kimberly reports a overall reduction of abdominal wall pain with improved pelvic floor support for her pelvic organs LTG Duration 8 weeks 1 Impairment Decreased strength and endurance of the pelvic floor Short Term Goal (STG) Kimberly is able to increase endurance of the pelvic floor to 10 sec hold time in supine STG Duration 4 weeks Detention Goal (LTG) Kimberly is able to improve her MMT by at least 1 muscle grade and is able to facilitate a pelvic floor contraction in sitting holding 5 sec or better LTG Duration 8 weeks Assessment Summary Assessment Pt good response to stretching not having abdominal pain, is limiting coffee due to finds is an irritant. Improved pelvic floor contraction with neuromuscular reeducation. Progressed instruction of quick flicks today 2 SH 4 sec rest with education assist urgency technique with good feedback. She reports can feel TA draw better in SL now. Improved tolerance to MF glide and education self to abdominal scar to support mobility. Physical Therapy Plan Frequency and Duration Frequency of Treatment 2x/Week Duration of treatment (weeks) 8 Plan of Care Start Date 07/02/24 Plan of Care End Date 08/27/24 Therapeutic Interventions Therapeutic Interventions Home Exercise Program,Manual Therapy,Patient/Caregiver Education,Self-Care/Home Management,Soft Tissue Mobilization,Therapeutic Exercises Modalities Biofeedback Next Visit Focus/Plan Next Note Type Treatment Note Next Visit Plan MFR for the suprapubic fascia, recheck urge deference technique and use quick flicks added last tx, continue progressing pelvic floor endurance and core strength, review clam shells, work on sit-stand with pelvic floor and TA engagement
--- NOTE | 2024-07-29 16:00 | PT.OTN ---
Current Diagnoses Other female genital prolapse (07/29/24) Right lower quadrant pain (07/29/24) Physical Therapy Treatment Note PT-OP-A Visit Information Start: 07/01/24 17:02 Freq: Status: Active Protocol: Document 07/29/24 11:31 [facility] (Rec: 07/29/24 12:16 [facility] [id number]) Out-Patient Physical Therapy Visit Information Visit Information Visit Type Treatment Note Visit Start Time 11:31 Visit Stop Time 12:15 Visit Number 6 Number of HVAC MECHANIC Visits 0 PT-OP-B Current Condition Start: 07/01/24 17:02 Freq: Status: Active Protocol: Document 07/02/24 09:45 [facility] (Rec: 07/02/24 10:03 [facility] [id number]) Current Condition History of Current Condition Onset Date March 2024 Current Complaints right sided lower abdominal and pelvic pain, urinary urgency History of Current Condition pt notes she has always had frequent urination. She feels like now it is running her life, Thanksgiving time she noted she was going all the time. Then the pain started. Its in the right lower abdomen and then wraps around her back. Then she started to experience intermittent sharp pain with bending or squatting. She was put on antibiotic and when the culture cam back she was taken off the first one and put on the second antibiotic. By May she was voiding every 15 minutes. 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 She started rowing this past sepemte Fluid intake pt drinks mostly water, i cup of coffee in am and that is really it. She gave any alcohol as she felt something was wrong. past medical history of twins with c section delivery with one baby trasverse then one additional baby that was ce section. PT-OP-C Subjective Start: 07/01/24 17:02 Freq: Status: Active Protocol: Document 07/29/24 11:31 [facility] (Rec: 07/29/24 12:16 [facility] [id number]) OP-PT Subjective Patient Comments Patient Comments pt notes she has been under a lot of stress this week and could feel the right sided tension in her lower abdominal region and she is wondering if this is because of her stress levels. PT-OP-F Manual Assessment Start: 07/01/24 17:02 Freq: Status: Active Protocol: Document 07/02/24 09:45 [facility] (Rec: 07/03/24 16:57 [facility] [id number]) Manual Assessments Soft Tissue Assessment Soft Tissue Mobility Assessment scar tissue tightness over the scar on the suprapubic fascia tenderness to palpation over the right lower abdominal wall PT-OP-I Pelvic Floor Start: 07/01/24 17:02 Freq: Status: Active Protocol: Document 07/02/24 13:23 [facility] (Rec: 07/02/24 13:26 [facility] [id number]) Pelvic Floor Assessment Urine Pelvic Floor Surgery No Other Urinary Symptoms pelvic pain symptoms Leakage Size Small Leakage Cause Cough Other Leakage Causes leakage only with strong cough or sneeze but not pts chief complaint of symptoms Pelvic Clock Pelvic Clock 12-3 Atrophy Pelvic Clock 3-6 Tightness Pelvic Clock 6-9 Atrophy,Tightness Pelvic Clock 9-12 Atrophy Pelvic Clock Other tenderness to palpation on the right lateral wall of the levator ani Prolapse Uterine Prolapse Grade 2 Cystocele Grade 2 Contraction Ability Voluntary Contraction Weak Voluntary Relaxation Weak Manual Muscle Testing Left 2 Manual Muscle Testing Right 2 Manual Muscle Testing Anterior 1 Manual Muscle Testing Posterior 2 Muscle Endurance (Seconds) 5 PT-OP-J Posture/Palpation/Skin Start: 07/01/24 17:02 Freq: Status: Active Protocol: Document 07/02/24 09:45 [facility] (Rec: 07/03/24 16:57 [facility] [id number]) Palpation Assessment Location right lower abdominal wall Palpation Findings Soft Tissue Tightness,Muscle Guarding Palpation Details tenderness to palpation along with tightness of lower abdominal fascia both over the bladder and right lower abdominal wall PT-OP-M Strength Start: 07/01/24 17:02 Freq: Status: Active Protocol: Document 07/02/24 09:45 [facility] (Rec: 07/03/24 16:57 [facility] [id number]) Trunk Strength Trunk Manual Muscle Testing Testing Position Supine Flexion 3 Fair Core Stabilization With transverse abdominal contraction there is tenderness that is reproduced on the lower right abdominal wall. Codie needs cues to pull the TA musculature towards her verses pushing out away from the abdominal wall. PT-OP-Q Treatments Start: 07/01/24 17:02 Freq: Status: Active Protocol: Document 07/29/24 11:31 [facility] (Rec: 07/30/24 12:58 [facility] [id number]) Therapeutic Exercises Supine Exercises diaphragmatic breathing Supine Exercise Name cues to let abdominal wall relax with inhale Reps/Minutes 5 reps inhale x 4 exhale x 6 Manual Therapy Treatment Soft Tissue Mobilization MFR of the suprapubic fascia and over right side of abdominal wall Mobilization Type Myofascial Release Body Position Hooklying Comments improving no pain reported and pt is no longer as tender I worked on releasing both the lower abdominal and suprapubic fascia. There is some scar tissue present over the scar. lateral glide ed self application Self-Care/Home Management Treatment Education Patient Education Home Exercise Program,Pain Management Other Education worked on pelvic floor relaxation with the diaphragmatic breathing, worked on being aware of pressure systems and not pushing down with the pelvic floor PT-OP-T Assessment and Plan Start: 07/01/24 17:02 Freq: Status: Active Protocol: Document 07/29/24 11:31 [facility] (Rec: 07/30/24 12:58 [facility] [id number]) Physical Therapy Assessment Goals 3 Impairment urinary urgency and frequency with pt voiding 15-19 times per day and 2 times per night Short Term Goal (STG) Kimberly is educated on the urge deference technique and bladder retraining to help reduce complaints of urinary frequency and urgency and is educated on toileting techniques to help with fully emptying her bladder. Bureau Director Goal (LTG) Kimberly is able to increase her void time to at least every hour and will be working towards every 2 hour intervals LTG Duration 8 weeks+ 2 Impairment right lower abdominal wall pain made worse with bending activities Bureau Director Goal (LTG) Kimberly reports a overall reduction of abdominal wall pain with improved pelvic floor support for her pelvic organs LTG Duration 8 weeks 1 Impairment Decreased strength and endurance of the pelvic floor Short Term Goal (STG) Kimberly is able to increase endurance of the pelvic floor to 10 sec hold time in supine STG Duration 4 weeks Bureau Director Goal (LTG) Kimberly is able to improve her MMT by at least 1 muscle grade and is able to facilitate a pelvic floor contraction in sitting holding 5 sec or better LTG Duration 8 weeks Physical Therapy Plan Frequency and Duration Frequency of Treatment 2x/Week Duration of treatment (weeks) 8 Plan of Care Start Date 07/02/24 Plan of Care End Date 08/27/24 Next Visit Focus/Plan Next Note Type Treatment Note Next Visit Plan MFR for the suprapubic fascia, recheck urge deference technique and use quick flicks added last tx, continue progressing pelvic floor endurance and core strength, review clam shells, work on sit-stand with pelvic floor and TA engagement
--- NOTE | 2024-08-05 16:46 | PT.OTN ---
Current Diagnoses Other female genital prolapse (08/05/24) Right lower quadrant pain (08/05/24) Physical Therapy Treatment Note PT-OP-A Visit Information Start: 07/01/24 17:02 Freq: Status: Active Protocol: Document 08/05/24 10:44 [facility] (Rec: 08/05/24 11:32 [facility] [id number]) Out-Patient Physical Therapy Visit Information Visit Information Visit Type Treatment Note Visit Start Time 10:45 Visit Stop Time 11:30 Visit Number 7 Evaluation Information Evaluation Date 07/02/24 PT-OP-B Current Condition Start: 07/01/24 17:02 Freq: Status: Active Protocol: Document 07/02/24 09:45 [facility] (Rec: 07/02/24 10:03 [facility] [id number]) Current Condition History of Current Condition Onset Date March 2024 Current Complaints right sided lower abdominal and pelvic pain, urinary urgency History of Current Condition pt notes she has always had frequent urination. She feels like now it is running her life, Thanksgiving time she noted she was going all the time. Then the pain started. Its in the right lower abdomen and then wraps around her back. Then she started to experience intermittent sharp pain with bending or squatting. She was put on antibiotic and when the culture cam back she was taken off the first one and put on the second antibiotic. By May she was voiding every 15 minutes. 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 She started rowing this past sepemte Fluid intake pt drinks mostly water, i cup of coffee in am and that is really it. She gave any alcohol as she felt something was wrong. past medical history of twins with c section delivery with one baby trasverse then one additional baby that was ce section. PT-OP-C Subjective Start: 07/01/24 17:02 Freq: Status: Active Protocol: Document 08/05/24 10:44 [facility] (Rec: 08/05/24 11:32 [facility] [id number]) OP-PT Subjective Patient Comments Patient Comments she has had a couple of rough days where she felt bloated for a few days overall her whole stomach. SHe only felt the right sided pain briefly a couple of times. This will be Rebeccas last day prior to heading to [place] Patient Reported Progress Improving PT-OP-F Manual Assessment Start: 07/01/24 17:02 Freq: Status: Active Protocol: Document 07/02/24 09:45 [facility] (Rec: 07/03/24 16:57 [facility] [id number]) Manual Assessments Soft Tissue Assessment Soft Tissue Mobility Assessment scar tissue tightness over the scar on the suprapubic fascia tenderness to palpation over the right lower abdominal wall PT-OP-I Pelvic Floor Start: 07/01/24 17:02 Freq: Status: Active Protocol: Document 07/02/24 13:23 [facility] (Rec: 07/02/24 13:26 [facility] [id number]) Pelvic Floor Assessment Urine Pelvic Floor Surgery No Other Urinary Symptoms pelvic pain symptoms Leakage Size Small Leakage Cause Cough Other Leakage Causes leakage only with strong cough or sneeze but not pts chief complaint of symptoms Pelvic Clock Pelvic Clock 12-3 Atrophy Pelvic Clock 3-6 Tightness Pelvic Clock 6-9 Atrophy,Tightness Pelvic Clock 9-12 Atrophy Pelvic Clock Other tenderness to palpation on the right lateral wall of the levator ani Prolapse Uterine Prolapse Grade 2 Cystocele Grade 2 Contraction Ability Voluntary Contraction Weak Voluntary Relaxation Weak Manual Muscle Testing Left 2 Manual Muscle Testing Right 2 Manual Muscle Testing Anterior 1 Manual Muscle Testing Posterior 2 Muscle Endurance (Seconds) 5 PT-OP-J Posture/Palpation/Skin Start: 07/01/24 17:02 Freq: Status: Active Protocol: Document 07/02/24 09:45 [facility] (Rec: 07/03/24 16:57 [facility] [id number]) Palpation Assessment Location right lower abdominal wall Palpation Findings Soft Tissue Tightness,Muscle Guarding Palpation Details tenderness to palpation along with tightness of lower abdominal fascia both over the bladder and right lower abdominal wall PT-OP-M Strength Start: 07/01/24 17:02 Freq: Status: Active Protocol: Document 07/02/24 09:45 [facility] (Rec: 07/03/24 16:57 [facility] [id number]) Trunk Strength Trunk Manual Muscle Testing Testing Position Supine Flexion 3 Fair Core Stabilization With transverse abdominal contraction there is tenderness that is reproduced on the lower right abdominal wall. Codie needs cues to pull the TA musculature towards her verses pushing out away from the abdominal wall. PT-OP-Q Treatments Start: 07/01/24 17:02 Freq: Status: Active Protocol: Document 08/05/24 10:45 [facility] (Rec: 08/05/24 16:46 [facility] [id number]) Manual Therapy Treatment Soft Tissue Mobilization MFR of the suprapubic fascia and over right side of abdominal wall Mobilization Type Myofascial Release Body Position Hooklying Comments improving no pain reported and pt is no longer as tender I worked on releasing both the lower abdominal and suprapubic fascia. There is some scar tissue present over the scar. PT-OP-T Assessment and Plan Start: 07/01/24 17:02 Freq: Status: Active Protocol: Document 08/05/24 10:45 [facility] (Rec: 08/05/24 16:46 [facility] [id number]) Physical Therapy Assessment Goals 3 Impairment urinary urgency and frequency with pt voiding 15-19 times per day and 2 times per night Short Term Goal (STG) Kimberly is educated on the urge deference technique and bladder retraining to help reduce complaints of urinary frequency and urgency and is educated on toileting techniques to help with fully emptying her bladder. goal met Retirement Goal (LTG) Kimberly is able to increase her void time to at least every hour and will be working towards every 2 hour intervals excellent progress LTG Duration 8 weeks+ 2 Impairment right lower abdominal wall pain made worse with bending activities Finisher Card Tender Goal (LTG) Kimberly reports a overall reduction of abdominal wall pain with improved pelvic floor support for her pelvic organs good progress LTG Duration 8 weeks 1 Impairment Decreased strength and endurance of the pelvic floor Short Term Goal (STG) Kimberly is able to increase endurance of the pelvic floor to 10 sec hold time in supine good progress STG Duration 4 weeks Retirement Goal (LTG) Kimberly is able to improve her MMT by at least 1 muscle grade and is able to facilitate a pelvic floor contraction in sitting holding 5 sec or better LTG Duration 8 weeks Assessment Summary Assessment This was Kimberly's last visit prior to heading to [place] for several months. She reports a overall reduction with urinary symptoms. Her abdominal pain has decreased but she will find it coming on with stress and intermittent symptoms. She feels independent with her home program but if she needs care when in [place] she will seek out pelvic floor PT. At this point Kimberly will be discharged but I would be happy to resume care with new referral once she returns should she need further care Physical Therapy Plan Discharge Physical Therapy Discharge Reasons No Longer Attending PT Discharge Comments Pt will be in [place] for several months
--- NOTE | 2024-08-05 16:49 | PT.OPDS ---
Current Diagnoses Other female genital prolapse (08/05/24) Right lower quadrant pain (08/05/24) Visit Care Team Role Provider Type Ludy Botello PA-C Attending Provider Advanced Excel Analyst Family Provider Primary Care Provider Referring Provider Specialty: Medical Address: [address] [place] [address], [id number] Email: Visit Number Visit Number 7 Discharge Summary PT-OP-B Current Condition Start: 07/01/24 17:02 Freq: Status: Active Protocol: Document 07/02/24 09:45 [facility] (Rec: 07/02/24 10:03 [facility] [id number]) Current Condition History of Current Condition Onset Date March 2024 Current Complaints right sided lower abdominal and pelvic pain, urinary urgency History of Current Condition pt notes she has always had frequent urination. She feels like now it is running her life, Thanksgiving time she noted she was going all the time. Then the pain started. Its in the right lower abdomen and then wraps around her back. Then she started to experience intermittent sharp pain with bending or squatting. She was put on antibiotic and when the culture cam back she was taken off the first one and put on the second antibiotic. By May she was voiding every 15 minutes. 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 She started rowing this past sepemte Fluid intake pt drinks mostly water, i cup of coffee in am and that is really it. She gave any alcohol as she felt something was wrong. past medical history of twins with c section delivery with one baby trasverse then one additional baby that was ce section. PT-OP-C Subjective Start: 07/01/24 17:02 Freq: Status: Active Protocol: Document 08/05/24 10:44 [facility] (Rec: 08/05/24 11:32 [facility] [id number]) OP-PT Subjective Patient Comments Patient Comments she has had a couple of rough days where she felt bloated for a few days overall her whole stomach. SHe only felt the right sided pain briefly a couple of times. This will be Rebeccas last day prior to heading to [place] Patient Reported Progress Improving PT-OP-F Manual Assessment Start: 07/01/24 17:02 Freq: Status: Active Protocol: Document 07/02/24 09:45 [facility] (Rec: 07/03/24 16:57 [facility] [id number]) Manual Assessments Soft Tissue Assessment Soft Tissue Mobility Assessment scar tissue tightness over the scar on the suprapubic fascia tenderness to palpation over the right lower abdominal wall PT-OP-I Pelvic Floor Start: 07/01/24 17:02 Freq: Status: Active Protocol: Document 07/02/24 13:23 [facility] (Rec: 07/02/24 13:26 [facility] [id number]) Pelvic Floor Assessment Urine Pelvic Floor Surgery No Other Urinary Symptoms pelvic pain symptoms Leakage Size Small Leakage Cause Cough Other Leakage Causes leakage only with strong cough or sneeze but not pts chief complaint of symptoms Pelvic Clock Pelvic Clock 12-3 Atrophy Pelvic Clock 3-6 Tightness Pelvic Clock 6-9 Atrophy,Tightness Pelvic Clock 9-12 Atrophy Pelvic Clock Other tenderness to palpation on the right lateral wall of the levator ani Prolapse Uterine Prolapse Grade 2 Cystocele Grade 2 Contraction Ability Voluntary Contraction Weak Voluntary Relaxation Weak Manual Muscle Testing Left 2 Manual Muscle Testing Right 2 Manual Muscle Testing Anterior 1 Manual Muscle Testing Posterior 2 Muscle Endurance (Seconds) 5 PT-OP-J Posture/Palpation/Skin Start: 07/01/24 17:02 Freq: Status: Active Protocol: Document 07/02/24 09:45 [facility] (Rec: 07/03/24 16:57 [facility] [id number]) Palpation Assessment Location right lower abdominal wall Palpation Findings Soft Tissue Tightness,Muscle Guarding Palpation Details tenderness to palpation along with tightness of lower abdominal fascia both over the bladder and right lower abdominal wall PT-OP-M Strength Start: 07/01/24 17:02 Freq: Status: Active Protocol: Document 07/02/24 09:45 [facility] (Rec: 07/03/24 16:57 [facility] [id number]) Trunk Strength Trunk Manual Muscle Testing Testing Position Supine Flexion 3 Fair Core Stabilization With transverse abdominal contraction there is tenderness that is reproduced on the lower right abdominal wall. Codie needs cues to pull the TA musculature towards her verses pushing out away from the abdominal wall. PT-OP-T Assessment and Plan Start: 07/01/24 17:02 Freq: Status: Active Protocol: Document 08/05/24 10:45 [facility] (Rec: 08/05/24 16:46 [facility] [id number]) Physical Therapy Assessment Goals 3 Impairment urinary urgency and frequency with pt voiding 15-19 times per day and 2 times per night Short Term Goal (STG) Kimberly is educated on the urge deference technique and bladder retraining to help reduce complaints of urinary frequency and urgency and is educated on toileting techniques to help with fully emptying her bladder. goal met Therapy Technician Goal (LTG) Kimberly is able to increase her void time to at least every hour and will be working towards every 2 hour intervals excellent progress LTG Duration 8 weeks+ 2 Impairment right lower abdominal wall pain made worse with bending activities [facility] Goal (LTG) Kimberly reports a overall reduction of abdominal wall pain with improved pelvic floor support for her pelvic organs good progress LTG Duration 8 weeks 1 Impairment Decreased strength and endurance of the pelvic floor Short Term Goal (STG) Kimberly is able to increase endurance of the pelvic floor to 10 sec hold time in supine good progress STG Duration 4 weeks [facility] Goal (LTG) Kimberly is able to improve her MMT by at least 1 muscle grade and is able to facilitate a pelvic floor contraction in sitting holding 5 sec or better LTG Duration 8 weeks Assessment Summary Assessment This was Kimberly's last visit prior to heading to [place] for several months. She reports a overall reduction with urinary symptoms. Her abdominal pain has decreased but she will find it coming on with stress and intermittent symptoms. She feels independent with her home program but if she needs care when in [place] she will seek out pelvic floor PT. At this point Kimberly will be discharged but I would be happy to resume care with new referral once she returns should she need further care Physical Therapy Plan Discharge Physical Therapy Discharge Reasons No Longer Attending PT Discharge Comments Pt will be in [place] for several months
== END 2024-08-07 13:57 | disposition home or self-care (01) ==
LOC: PHYS 10:45
PROVIDERS: Family Provider Physician Assistant; PCP Physician Assistant; Referring Provider Physician Assistant; Visit Provider Physician Assistant
DX: N81.89 Other female genital prolapse (principal); R10.31 Right lower quadrant pain
CPT/HCPCS: 97110; 97112; 97140; 97161; 97535